=== PATIENT | male | born 1960 | race African-American/Black ===

== ENCOUNTER 2024-11-11 14:10 | Emergency (ER) | payer OTHER ==
[2024-11-11 14:16] VITALS: BMI 26.9
[2024-11-11] MEDS ORDERED: LIDOCAINE 4% PATCH TP ONE (14:50)
[2024-11-11] MEDS ORDERED: IBUPROFEN 600 MG TABLET (FP) PO ONE (14:51)
[2024-11-11] MEDS ORDERED: ACETAMINOPHEN 500 MG TABLET (FP) ONE ×2 (14:51→14:53)
[2024-11-11 14:53] LABS: EPI CELLS 3 /uL (0-25.1); HYALINE CASTS 0 /uL (0-3.1); PH,URINE 5.5 (5.0-8.0); URINE APPEARANCE CLEAR; URINE BACTERIA 42 /uL (0-1359); URINE BILIRUBIN NEGATIVE (NEGATIVE); URINE COLOR YELLOW; URINE GLUCOSE (UA) NEGATIVE (NEGATIVE); URINE KETONE NEGATIVE (NEGATIVE); URINE LEUK ESTERASE NEGATIVE (NEGATIVE); URINE NITRITE NEGATIVE (NEGATIVE); URINE PROTEIN NEGATIVE (NEGATIVE); URINE RBC 18 /uL (0-23.9); URINE UROBILINOGEN 0.2 mg/dL (0.2-1.0); URINE WBC 4 /uL (0-25.8)
[2024-11-11] MEDS: IBUPROFEN 600 MG TABLET (FP) PO ONE (15:06)
[2024-11-11] MEDS: LIDOCAINE 4% PATCH TP ONE (15:06)
[2024-11-11] MEDS: ACETAMINOPHEN 500 MG TABLET (FP) PO ONE (15:07)
[2024-11-11 16:42] LABS: HIV INTERPRETATION NEGATIVE (NEGATIVE)
[2024-11-11 18:23] LABS: BASO % 0.3 % (0-2.0); EOS % 2.4 % (0-4.5); HEMATOCRIT 42.8 % (35.4-49); HEMOGLOBIN 14.1 GM/dL (11.7-16.9); LYMPH % 43.1 % (8-40); MCH 28.8 pg (25.7-33.7); MEAN CELL VOLUME 87.2 fl (80-96); MEAN PLT VOLUME 7.1 fl (7.5-11.1); MONO % 5.7 % (3.8-10.2); NEUT % 48.5 % (42.8-82.8); PLATELET COUNT 213 10^3/uL (134-434); RBC 4.91 M/mm3 (4.00-5.60); RDW 15.3 % (11.9-15.9)
[2024-11-11 18:46] LABS: POTASSIUM 4.3 mmol/L (3.5-5.1)
[2024-11-11 18:48] LABS: ALBUMIN 3.7 g/dl (3.4-5.0); BLOOD UREA NITROGEN 15.7 mg/dL (7-18)
[2024-11-11 18:51] LABS: CREATININE 1.2 mg/dL (0.55-1.3)
[2024-11-11 18:53] LABS: BILIRUBIN,TOTAL 0.4 mg/dL (0.2-1)
[2024-11-11 20:58] VITALS: BP 171/81; PULSE 64; RESP 18; TEMP 98.4
[2024-11-11] MEDS ORDERED: LIDOCAINE PATCH REMOVAL MC ONE (22:00)
== END 2024-11-11 21:05 | disposition home or self-care (01) ==
LOC: JER 14:10
DX: R10.9 Unspecified abdominal pain (principal); M54.50 Low back pain, unspecified
CPT/HCPCS: 36415; 74176-TC; 74177-TC; 80053; 81003; 85025; 86803; 87086; 87389; 99285-25; Q9967

== ENCOUNTER 2024-12-02 13:58 | Emergency (ER) | payer OTHER ==
[2024-12-02 14:21] VITALS: RESP 18; BMI 26.9
[2024-12-02] MEDS ORDERED: LIDOCAINE 4% PATCH TP ONE (15:55)
[2024-12-02] MEDS ORDERED: ACETAMINOPHEN 325 MG TABLET (FP) ONE (15:55)
[2024-12-02] MEDS: LIDOCAINE 4% PATCH TP ONE (15:59)
[2024-12-02] MEDS: ACETAMINOPHEN 500 MG TABLET (FP) PO ONE (16:00)
[2024-12-02] MEDS ORDERED: ALBUTEROL SO4 2.5/IPRATROPIUM 0.5 INH SOL 3 ML VIAL.NEB. NEB ONE (16:07)
[2024-12-02] MEDS: ALBUTEROL SO4 2.5/IPRATROPIUM 0.5 INH SOL 3 ML VIAL.NEB. NEB SCH (16:42)
[2024-12-02] MEDS ORDERED: KETOROLAC TROMETHAMINE 30 MG/1 ML VIAL ONE (17:00)
[2024-12-02] MEDS ORDERED: METHOCARBAMOL 500 MG TABLET ONE (17:00)
[2024-12-02] MEDS: METHOCARBAMOL 500 MG TABLET PO ONE (17:03)
[2024-12-02] MEDS: KETOROLAC TROMETHAMINE 30 MG/1 ML VIAL IM ONE (17:06)
[2024-12-02 17:42] VITALS: BP 125/60; PULSE 100; TEMP 101.4
[2024-12-02] MEDS ORDERED: LIDOCAINE PATCH REMOVAL MC SCH (22:00)
== END 2024-12-02 19:35 | disposition home or self-care (01) ==
LOC: JER 13:58
PROC: 3E0233Z Introduction of Anti-inflammatory into Muscle, Percutaneous Approach (ICD-10-PCS; principal; 2024-12-02)
PROC: 3E0F7GC Introduction of Other Therapeutic Substance into Respiratory Tract, Via Natural or Artificial Opening (ICD-10-PCS; 2024-12-02)
DX: M54.31 Sciatica, right side (principal); R50.9 Fever, unspecified; Z20.822 Contact with and (suspected) exposure to COVID-19
CPT/HCPCS: 0241U-QW; 71046-TC-FY; 93005; 93010; 94640; 96372; 99285-25